=== PATIENT | female | born 1975 | race Two or more races ===

== ENCOUNTER 2021-12-30 19:17 | Emergency (ER) | payer SELFPAY ==
[~2021-12-30] VITALS: Ht 165.1 cm; Wt 59.0 kg
[2021-12-30 23:58] LABS: BASOPHILS % 0.5 % (0.0-2.0); EOSINOPHILS % 1.1 % (0.0-5.0); HEMATOCRIT. 38.8 % (36.0-48.0); HEMOGLOBIN. 13.3 g/dL (12.0-16.0); MEAN CORPUSCULAR HEMOGLOBIN 30.8 pg (28.0-32.0); MEAN CORPUSCULAR VOLUME 89.9 fL (81.0-99.0); MEAN PLATELET VOLUME 6.9 fl (7.4-10.4); MONOCYTES % 4.5 % (2.0-8.0); NEUTROPHILS % 81.9 % (40.0-76.0); PLATELET 266 x1000/uL (130-400); RED BLOOD CELL COUNT 4.32 mill/uL (4.2-5.4); RED CELL DISTRIBUTION WIDTH 13.2 % (11.6-14.6)
[2021-12-31 00:06] LABS: CHLORIDE 109 mEq/L (98-107)
[2021-12-31 00:11] LABS: ETHANOL BLOOD < 10 mg/dL
[2021-12-31 01:57] VITALS: BP 115/83
== END 2021-12-31 01:58 | disposition home or self-care (01) ==
LOC: ER 19:17
DX: R53.1 Weakness (principal); F32.A Depression, unspecified; Z59.00 Homelessness unspecified
CPT/HCPCS: 36415; 80048; 80320; 85025; 99283; G0480